=== PATIENT | female | born 1985 | race American Indian/Alaskan Native ===

== ENCOUNTER 2021-12-02 07:12 | Emergency (ER) | payer SELFPAY ==
--- NOTE | 2021-12-02 10:25 | Emergency Department Report ---
ED Anxiety HPI - General Chief Complaint: Anxiety Stated Complaint: PANICK ATTACK Time Seen by Provider: 12/02/21 09:54 Source: patient, EMS Mode of arrival: Stretcher - History of Present Illness Initial Comments: 36-year-old female's been under some increased stress over the past few days since Mother's Day with the general due to family issues and increased working hours went to work today and began having a anxiety episode that was not controlled with her usual Lexapro. Since that time she has been able to calm down and return to her baseline and states that she feels normal. She reports no further palpitations or chest pain, shortness of breath, no headache, no dizziness, no fever, chills, sweats. Feels she just needs to take a break and rest for the rest of the day before returning to work and request a note MD Complaint: anxiety -: Gradual Previous History of Same: Yes Severity: mild Quality: constant Provoking factors: none known Improves With: nothing Worsens With: nothing Associated symptoms: denies: palpitations, diaphoresis, confusion, fever/chills, headaches, anorexia, rash, syncope, weakness - Related Data Allergies/Adverse Reactions: Allergies Allergy/AdvReac Type Severity Reaction Status Date / Time No Known Allergies Allergy Verified 12/02/21 07:19 ED Review of Systems ROS: Stated complaint: PANICK ATTACK Other details as noted in HPI Comment: All other systems reviewed and negative ED Physical Exam - General Limitations: No Limitations General appearance: alert, in no apparent distress - Head Head exam: Present: atraumatic, normocephalic - Eye Eye exam: Present: normal appearance, PERRL, EOMI Pupils: Present: normal accommodation - ENT ENT exam: Present: normal exam, normal orophraynx, mucous membranes moist, TM's normal bilaterally - Neck Neck exam: Present: normal inspection, full ROM - Respiratory Respiratory exam: Present: normal lung sounds bilaterally. Absent: respiratory distress, wheezes, rales, chest wall tenderness, decreased breath sounds - Cardiovascular Cardiovascular Exam: Present: regular rate, normal rhythm. Absent: systolic murmur, diastolic murmur, rubs, gallop - GI/Abdominal GI/Abdominal exam: Present: soft, normal bowel sounds - Extremities Exam Extremities exam: Present: normal inspection - Back Exam Back exam: Present: normal inspection - Neurological Exam Neurological exam: Present: alert, oriented X3 - Psychiatric Psychiatric exam: Present: normal affect, normal mood - Skin Skin exam: Present: warm, dry, intact, normal color. Absent: rash ED Course Vital Signs 12/02/21 07:18 Temperature 98.4 F Pulse Rate 86 Blood Pressure 136/74 [Left] O2 Sat by Pulse 100 Oximetry Critical care attestation.: If time is entered above; I have spent that time in minutes in the direct care of this critically ill patient, excluding procedure time. ED Disposition Clinical Impression: Anxiety Disposition: 01 HOME / SELF CARE / HOMELESS Is pt being admited?: No Does the pt Need Aspirin: No Condition: Stable Instructions: Supporting Someone With Anxiety, Managing Anxiety, Adult Referrals: [facility] [Provider Group] - 3-5 Days Forms: Work/School Release Form(ED)
[2021-12-02 10:38] VITALS: BP 141/65
== END 2021-12-02 10:40 | disposition home or self-care (01) ==
LOC: ED 07:12
DX: F41.9 Anxiety disorder, unspecified (principal)
CPT/HCPCS: 99283